=== PATIENT | male | born 1995 ===

== ENCOUNTER 2020-06-15 14:16 | Outpatient (REF) | payer SELFPAY ==
[2020-06-18 17:03] LABS: SARS-CoV-2 RNA Undetected (Undetected); SARS-CoV-2 Specimen Source Nasopharynx
== END 2020-06-15 14:36 ==
LOC: NCHCN 14:16
PROVIDERS: Visit Provider Physician Assistant
DX: Z11.59 Encounter for screening for other viral diseases (principal)
CPT/HCPCS: U0003